=== PATIENT | female | born 1940 | race Caucasian/White ===

== ENCOUNTER 2017-12-12 06:34 | Inpatient (IN) ==
[2017-12-12] MEDS ORDERED: Chlorhexidine Gluconate 2% 1 Pack (2 Cloths) TOPICAL ONE (06:59)
[2017-12-12] MEDS ORDERED: Metoprolol Tartrate 25 MG Tablet PO ONE (06:59)
[2017-12-12] MEDS ORDERED: ceFAZolin 2 GM Premix Inj 2 GM/100 ML BAG IV.SIG SCH (07:00)
[2017-12-12] MEDS ORDERED: Sodium Chlor 0.9% Inj 500 ML IV.SIG SCH (07:00)
[2017-12-12] MEDS ORDERED: Bupivacaine/Epinephrine 0.5% Inj 50 ML Vial ONE (07:12)
[2017-12-12] MEDS ORDERED: Gelatin Size 100 Topical Foam ONE (07:13)
[2017-12-12] MEDS ORDERED: Thrombin Topical Soln 5,000 UNIT Vial TOPICAL ONE (07:13)
[2017-12-12] MEDS ORDERED: Hypromellose 0.3% Opth Gel 10 GM Bottle ONE (07:35)
[2017-12-12] MEDS ORDERED: Propofol Inj 500 MG/50 ML Vial ONE (07:36)
[2017-12-12] MEDS ORDERED: Dexmedetomidine Inj 200 MCG/2 ML Vial ONE (07:37)
[2017-12-12] MEDS ORDERED: HYDROmorphone PF Inj 2 MG/ML Vial ONE (07:47)
[2017-12-12] MEDS: Vancomycin Inj 1,000 MG in Sodium Chlor 0.9% Inj 250 ML IV.SIG SCH ×3 (08:11→20:16)
[2017-12-12] MEDS ORDERED: Famotidine PF Inj 20 MG/2 ML Vial ONE (08:11)
[2017-12-12] MEDS ORDERED: Heparin - SQ 10,000 UNITS/ML Vial ONE (11:01)
[2017-12-12] MEDS ORDERED: Bupivacaine Liposomal PF 1.3% Inj 20 ML Vial ONE (11:23)
[2017-12-12] MEDS ORDERED: Bisacodyl 10 MG Supp RECTAL PRN (13:27)
[2017-12-12] MEDS ORDERED: Naloxone Inj 0.4 MG/ML Vial IV.PUSH PRN (13:27)
[2017-12-12] MEDS ORDERED: HYDROmorphone PCA Inj 6 MG/30 ML PCA.VIAL PCA PRN (13:27)
[2017-12-12] MEDS ORDERED: Acetaminophen 325 MG Tablet PO PRN (13:27)
[2017-12-12] MEDS ORDERED: Zolpidem Tartrate 5 MG Tablet PO PRN (13:33)
[2017-12-12] MEDS ORDERED: HYDROmorphone PCA Inj 6 MG/30 ML PCA.VIAL PCA ONE (13:46)
[2017-12-12] MEDS ORDERED: fentaNYL Citrate Inj 100 MCG/2 ML Ampul ONE (13:59)
--- NOTE | 2017-12-12 14:02 | XR ---
EXAM DATE: 12/12/2017 1:59 PM EDT AGE/SEX: 77 years / Female INDICATIONS: Stenosis, discectomy, fusion, hardware placement. CLINICAL DATA: This is the patient's initial encounter. Patient reports that signs and symptoms have been present for 1 day and indicates a pain score of Nonresponsive. MEDICAL/SURGICAL HISTORY: None. None. COMPARISON: No prior exams available for comparison. FINDINGS: Frontal and lateral spot intraoperative fluoroscopic views of the lumbar spine demonstrate posterior ginny and transpedicular screw fixation hardware and intervertebral fusion hardware at the L3-L5 levels . Surgical drain is seen. CONCLUSION: Postoperative changes. Electronically signed by: Martínez Seay MD 12/12/2017 2:01 PM EDT
--- NOTE | 2017-12-12 15:35 | P.OP ---
Preoperative Diagnosis: Degenerative spondylolisthesis Postoperative Diagnosis: Degenerative spondylolisthesis Date of procedure: 12/12/17 Procedure: L4-L5, L5-S1 laminectomy, interbody arthrodhesis using PEEK cage and autologous bone graft, L4-L5 instrumental fixation using transpedicular screws and rods, L4 -L5 posterolateral fusion using autologous bone graft and demineralized bone matrix. Microsurgical dissection Anesthesia: MARIBELL Surgeon: Antonio Loza MD Numerical Control Machine Machinist: Iwona Hernandez Pathology: none sent Operation and Findings: INDICATIONS FOR THE SURGICAL PROCEDURE Ms Lees is a 77 year-old female who presented with intractable mechanical back pain and anselmo evidence of L5 and S1 lower extremity radiculopathy. She has spondylolisthesis with severe loss of disk space. She failed maximum nonsurgical management including multiple modalities of conservative treatment as well as pain management interventions by an interventional pain specialist. A surgical decompression and arthrodhesis were indicated as a last resort. The [id number] details of the procedure, indications, alternatives, risks and potential complications were fully discussed with the patient. The patient fully understood. All the questions were answered. No guarantees were given. The patient voiced requesting the procedure and provided informed consents. The patient was offered the alternative of delaying the procedure and continuing with nonsurgical management. DETAILS OF THE SURGICAL PROCEDURE Prior to the procedure, the surgical incision was marked in the preoperative surgical holding room, and the procedure, risks, and potential complications revisited with the patient. Placement of electrodes for intraoperative neurophysiological monitoring was completed. The patient was taken to the operative room, and following induction of general anesthesia, endotracheal intubation was performed. A Hubbard catheter, bilateral SUZANNE hose and sequential compression devices were placed and kept throughout the procedure. The patient was positioned prone, over a Andrzej table over a Vimal frame. All pressure in the preoperative surgical holding room points were carefully padded with eggcrate and gel mattress. The eyes were tapped shut after ointment was applied by the nesthesiologist to prevent corneal abrasion. A Baldev hugger was placed over the exposed lower body to maintain control of the core body temperature. The electrophysiological team placed the needles and electrodes in their proper location and baseline SSEP's and motor evoked potentials were registered prior and following the positioning. The entrance to each pedicles was marked using a C arm. The lumbar region was prepped and draped in the usual sterile fashion. The surgical procedure was performed in several steps as follow: SURGICAL APPROACH Once the patient was positioned, a localizing cross-table lateral x-ray was performed with a C-arm. Two paramedian small incisions were outlined on the skin approximately 3cm from the midline. The skin incisions were made with a # 10 blade. Small bleeders were controlled with the cautery. The dissection was then carried out into deper planes and through the thoracolumbar fascia with a Bovie. The intermuscular septum was identified and the myscles were blunted dissected along the septum. The facets and transverse process of L4, L5 and S1 were exposed and the proper anatomical landmarks were identidied. A microsurgical self-retaining retractor was placed on the incision, and a localizing lateralizing cross-table x-ray was performed with an instrument underneath a lamina of the lumbar spine. There was a bilateral pars defect with gross instability of the bony structures. INSTRUMENTAL FIXATION At this point in the procedure, placement of bilateral transpedicular screws was necessary for stabilization of the spine. Initially, the entry point for the screw was selected anatomically at the junction of the facet, with the transverse process, and the pars interarticularis at L5 and at the sacrum. This was started with a Giamshetti needle followed by the use of a benitez wire. A tap was used to create the threads for the screws. Finally bilateral transpedicular screws were carefully placed bilaterally at L4, L5, and and S1 under fluoroscopic visualization. An appropriate purchase was achieved with all screws. The position of each screw was assessed anatomically with an AP, lateral , oblique Xrays. An intraoperative scan view of the spine was then performed using the iso-centric c-arm. Each screw was then assessed electrophysiologically with a nerve stimulator. SURGICAL DECOMPRESSION There was significant mass effect with compression of the neural structures. In order to relieve neural compression, it was necessary to perform a decompressive laminectomy, with decompression of the spinal canal and bilateral lateral recesses. Note that the scope of such decompression was significantly more extensive than the minimal exposure necessary to perform an interbody fusion, as there was extreme facet arthropathy with near complete collapse of the disk spaces and severe stenosis cause by the hyperthrophic joint facets. At this point of the procedure the operative microscope was draped in the usual sterile fashion and brought to the field. The rest of the surgical procedure was performed using microdissection technique with the exception of the closure. Under the operating microscope, a decompressive laminectomy was carried out at L5-S1 as follow: The laminae, base of the spinous processes and facets were carefully drilled exposing the ligamentum flavum. The facets were abnormal with severe facet arthropathy, vacuum facets, and mass effect over the neural structures. A broad disk protusion was contributing to compression of the neural structures and exiting L5, and S1 nerve roots. A near complete facetectomy was necessary resulting in further mechanical instability. The ligamentum flavum appeared hypertrophic, resulting on mass effect on the dorsal surface of the neural structures. The superior free border of the ligamentum flavum was elevated with a ligament dissector and the ligamentum flavum was removed with a 3 and 4 mm Kerrison forceps. The ligament was very adherent to the dural sac and during the dissection, ans extreme care was taken during the dissection. The exiting nerve roots were identified, and a wide foraminotomy was performed with a Kerrison in their trajectory towards the neural foramina at both levels. Epidural veins located laterally to the dural sac were coagulated with the bipolar cautery, and then incised using micro scissors. Gentle medial retraction of the dural sac allowed me to expose the disc space for the discectomy. Upon completion of the discectomy, an excellent decompression of the neural structures was achieved. INTERBODY ARTHRODHESIS In order to correct the narrowing of the disk space and maintain distraction of the space, and to achieve a solid interbody fusion, it was necessary the insertion of an interbody device into the disk space. Otherwise, the disk space would collapse, compromising the results of the surgical procedure. At this point of the procedure, the annulus fibrosus of the disk was carefully coagulated with a bipolar cautery and incised using an 11 bladed knife. Then, a microdiscectomy was carried out in a standard fashion using a combination of straight and up-biting pituitary forceps. A reverse angle curette was applied underneath the posterior longitudinal ligament, and used to push the disk fragments into the disk space, so they can be safely removed with a pituitary forceps. Once the discectomy was completed, it was necessary to decorticate the endplates, in order to eliminate the cartilaginous endplate and to expose healthy bone appropriate to perform the interbody fusion. The endplates at L4-5 , and L5-S1 were then thoroughly decorticated using increasing size bone nikita and ring curets, eliminating the cartilaginous fragments from both, the superior and inferior endplates. A disk space distractor was applied to the pedicle screws and gentle distraction was applied. This maneuver was assisted by the use of a disk distractor. Increased motility was noted at the disk, which was consistent with instability due to facet arthropathy. Once a thorough preparation of the disk space was achieved, the disk space was irrigated with antibiotic solution, and the interbody fusion was performed by carefully impacting PPEK cages filled with autologous iliac crest bone graft. A 7 mm cage was placed at L5-S1 and a 8mm cage was used at L4-L5. The use of several shoe impactors with different angulation, allowed me for an excellent, proper position of the interbody cage. A solid position of the cage with good purchase was achieved. The position of the cages were assessed anatomically with a probe and radiologically with the C-arm. POSTEROLATERAL FUSION The posterolateral fusion is a critical component to the procedure, to prevent future fatigue and failure of the instrumental fixation. Initially, the transverse processes of the vertebral bodies, lateral surface of the facets and the lateral gutters of the spine were carefully cleaned, eliminating all soft tissue and muscle attachments. The area was then irrigated with a large amount of antibiotic solution. Subsequently, the transverse processes, lateral surface of the facets, and lateral gutters of the spine were thoroughly decorticated using the TPS drill with a 5mm cutting lucas, exposing cancellous bone, in preparation for the posterolateral fusion. The incision was again irrigated with antibiotic solution. Then, the posterolateral fusion was then performed by carefully packing the lateral gutters of the spine at L4-5, and L5-S1 with autologous iliac crest bone combined with demineralized bone matrix. I packed as much bone as possible. COMLETION OF THE INSTRUMENTATION AND CLOSURE The rods were brought to the field, applied to all the screws, and the screw caps were sequentially applied. Compression was performed between the pedicle screws, and final tightening of the screws was completed using a torque wrench. A cross-link was used to connect the rods, in order to increase the stability of the construct. The cross link was secured using a torque wrench previously calibrated. The incision was again thoroughly irrigated with several liters of antibiotic solution, and hemostasis secured with the bipolar cautery. A Valsalva Maneuver performed by the anesthesiologist failed to show any evidence of cerebrospinal fluid leak or bleeding. A 10 mm Andrzej-St drain was left in the epidural space and externalized through a separate stab incision. The incision was then closed in planes. 0 Vicryl was used in an interrupted fashion to close the thoracolumbar fascia and the superficial fascia. The subcutaneous tissue was then approximated using 3-0 Vicryl in an interrupted fashion. Special care was taken to avoid space. The skin was then closed with 4-0 Vicryl in a running, subcuticular fashion. Dermabond was applied to the skin. Each plane of closure was irrigated with antibiotic solution. At the end of the procedure the sponge, needle and instrument counts were all correct. Estimated blood loss was 250 cc or less. No blood transfusion was given. The entire procedure was performed using continuous electrophysiological monitoring of the somatosensorial evoked potentials and EMG. The patient received prophylactic antibiotics. The patient was then extubated and transferred to the recovery room in stable condition.
--- NOTE | 2017-12-12 17:56 | P.CONCC ---
History of Present Illness Service: Critical care medicine Consult date: 12/12/17 Requesting Physician: Antonio Loza Reason for Consult: management of medical comorbidities Primary Care Provider: Jonnie Tabares MD Family Provider: oJnnie Tabares MD History of Present Illness: This is a 77-year-old female who presents for elective L5-S1 lumbar laminectomy with Dr. Loza. She has a history of GERD, hypertension, recent intermittent chest pain which is atypical nature, remote prior history of cervical cancer, and lower lumbar spondylolisthesis. She underwent uncomplicated procedure. She arrives to the ICU in stable and exudative condition. She is arousing from anesthesia and remains somewhat somnolent so a complete history and review of systems is unavailable. Limited review of systems is negative for chest pain, shortness of breath, headache, sore throat, nausea vomiting. In regards to her recent intermittent chest pain, she states she has not had any in at least a week. She has been worked up by her PCP, and has EKG in our system without any concerning changes. She does not have any associated dyspnea on exertion, shortness of breath, lightheadedness, syncope with this. Review of Systems All other systems reviewed negative except as stated in HPI PMFSH - History History Provided By: Patient - Medical History Medical History: Medical History (Last Reviewed 12/12/17 @ 07:06 by Zainab Celis) Degenerative joint disease GERD (gastroesophageal reflux disease) Hx of carcinoma in situ of cervix uteri Hypertension Osteoporosis Pain, radicular, lumbar Spondylolisthesis Wears eyeglasses - Surgical History Surgical History: Surgical History (Last Reviewed 12/12/17 @ 07:06 by Zainab Celis) History of YAG laser iridotomy of right eye History of conization of cervix History of tonsillectomy Hx of breast biopsy Hx of cataract removal with insertion of prosthetic lens Hx of cholecystectomy - Tobacco History Second Hand Smoke Exposure: No Smoking Status: Former smoker - Alcohol History How Often Do You Have a Drink Containing Alcohol: 4 or more times a week - Substance Use History Substance History: No History of Abuse - Travel History Recent Travel in the [facility] Within the Last 8 Weeks: No Recent Travel Out of the Country Within the Last 8 Weeks: No Medications and Allergies Active Medications: Active Medications Acetaminophen (Tylenol) 650 mg PO Q4H PRN PRN Reason: TEMPERATURE > 101.5 F Al Hydroxide/Mg Hydroxide (Milk Of Magnyannick Liq) 30 ml PO Q12H PRN PRN Reason: Mild Constipation Albuterol (Albuterol Neb (Prn)) 2.5 mg NEB Q4HR NEB PRN PRN Reason: WHEEZING Bisacodyl (Dulcolax Supp) 10 mg RECTAL DAILY PRN PRN Reason: SEVERE CONSITIPATION Lactated Ringer's (Lr 1000 Ml Inj) 1,000 mls @ 30 mls/hr IV.SIG .Q24H [facility] Stop: 12/13/17 06:59 Last Admin: 12/12/17 08:12 Dose: 30 mls/hr Sodium Chloride (Ns Inj) 500 mls @ 30 mls/hr IV.SIG .Q10H [facility]ATH[facility] Vancomycin HCl 1,000 mg/ (Sodium Chloride) 250 mls @ 250 mls/hr IV.SIG BULK [facility]AL[facility] Stop: 12/15/17 07:59 Last Admin: 12/12/17 11:06 Dose: 250 mls/hr Hydromorphone/Sodium Chloride (Dilaudid Store Shopper Inj) 6 mg in 30 mls @ 0 mls/hr EDGE [facility] UNSCH PRN PRN Reason: per EDGE GLUER parameters Last Admin: 12/12/17 14:19 Dose: 0 mls/hr Vancomycin HCl 1,000 mg/ (Sodium Chloride) 250 mls @ 250 mls/hr IV.SIG Q12H [facility] Stop: 12/13/17 08:59 Labetalol HCl (Trandate Inj) 10 mg IV.PUSH Q1H PRN PRN Reason: SYS BP GREATER THAN 170 MMHG Lactulose (Lactulose Liq) 30 ml PO DAILY PRN PRN Reason: SEVERE CONSITIPATION Lisinopril (Prinivil) 10 mg PO DAILY [facility] Magnesium Oxide (Mag-Ox) 400 mg PO BID [facility] Miscellaneous Information (Misc Nursing Information) 1 each OTHER UNSCH PRN PRN Reason: SEE LABEL COMMENTS Stop: 12/13/17 13:52 Multivitamins (Theragran) 1 tab PO DAILY [facility] Naloxone HCl (Narcan Inj) 0.4 mg IV.PUSH PRN PRN PRN Reason: SEE LABEL COMMENTS Non-Formulary Medication (Ginkgo Biloba [Ginkgo Biloba]) 120 mg PO DAILY [facility] Non-Formulary Medication (Diltiazem Hcl [Diltiazem Hcl]) 120 mg PO BID [facility] Ondansetron HCl (Zofran Inj) 4 mg IV.PUSH Q6H PRN PRN Reason: NAUSEA OR VOMITING Pantoprazole Sodium (Protonix Inj) 40 mg IV.PUSH DAILY HEATH[facility] (Cyclosporine 0.05% Opth. Emulsion [ Restasis]) 1 each EACH EYE Q12HR [facility]ATH[facility] Senna/Docusate Sodium (Deborah-Colace) 1 tab PO BID [facility] Sennosides (Senokot) 17.2 mg PO Q12H PRN PRN Reason: Moderate Constipation Allergies Allergy/AdvReac Type Severity Reaction Status Date / Time amoxicillin Allergy Severe Rash Verified 12/12/17 07:07 iodine Allergy Severe RESP. Verified 12/12/17 07:07 DISTRESS penicillin G Allergy Severe Rash Verified 12/12/17 07:07 potassium iodide Allergy Severe RESP. Verified 12/12/17 07:07 DISTRESS povidone-iodine Allergy Severe RESP. Verified 12/12/17 07:07 DISTRESS shellfish derived Allergy Severe Difficulty Verified 12/12/17 07:07 Breathing sodium iodide Allergy Severe RESP. Verified 12/12/17 07:07 DISTRESS Home Medications Medication Instructions Recorded Confirmed Type aspirin [Adult Low Dose Aspirin] 81 mg PO DAILY 12/05/17 12/12/17 History biotin 5,000 mcg PO DAILY 12/05/17 12/12/17 History calcium-vitamin D3-vitamin K 1 tab PO DAILY 12/05/17 12/12/17 History [Citracal Chew] cyclosporine [Restasis MultiDose] 1 drp OPHTHALMIC (EYE) Q12H 12/05/17 12/12/17 History diltiazem HCl 120 mg PO BID 12/05/17 12/12/17 History ginkgo biloba 120 mg PO DAILY 12/05/17 12/12/17 History lisinopril 10 mg PO DAILY 12/05/17 12/12/17 History magnesium oxide 500 mg PO BID 12/05/17 12/12/17 History dsqngojblzpw-[id number]-FA-vit K 1 tab PO DAILY 12/05/17 12/12/17 History [Adults Multivitamin] [id number]-[id number]-dha-epa 2 cap PO BID 12/05/17 12/12/17 History zolpidem [Ambien] 1 - 2 tab PO HS PRN 12/05/17 12/12/17 History Physical Exam Vital signs: Vital Signs 12/12/17 07:40 12/12/17 13:52 12/12/17 14:00 Temperature 36.3 C L 36.3 C L Pulse Rate 67 75 81 Respiratory Rate 16 16 16 Blood Pressure 140/81 118/69 112/63 Pulse Oximetry 100 100 100 12/12/17 14:15 12/12/17 15:13 Temperature Pulse Rate 77 70 Respiratory Rate 16 16 Blood Pressure 111/66 106/58 L Pulse Oximetry 100 100 Intake & Output 12/11/17 12/12/17 12/12/17 18:59 06:59 18:59 Intake Total 2250 / 2250 Output Total 1240 / 1240 Balance 1010 / 1010 Weight 46.9 kg Intake: IV 250 / 250 Vancomycin Inj 1,000 MG In NS 250 / 250 Inj 250 ML @ 250 mls/hr IV.SIG BULK SEALER [facility] Rx#:[id number] Oral 0 / 0 Anesthesia Amount 1999 / 1999 Output: Estimated Blood Loss 250 / 250 Urine Amount (Catheter) 950 / 950 Indwelling Urethral Catheter 950 / 950 Wound Drainage 40 / 40 # 1 Back 40 / 40 Other: Weight On Admission 46.9 kg Narrative: GENERAL: Frail elderly female, lying in bed, arousing from anesthesia HEENT: Normocephalic. Atraumatic. Pupils equal, round, reactive, conjugate. Mucous membranes are moist NECK: Trachea is midline. There is no JVD. CHEST: Nasal cannula oxygen, equal chest rise CARDIOVASCULAR: Normal rate, regular rhythm. Sinus. ABDOMEN: Soft, nontender, nondistended. No guarding. MUSCULOSKELETAL: Pulses 2+. No peripheral edema. CLARICE drain exit the lower back with approximately 5-10 mL's of sanguinous output. NEUROLOGICAL: RASS -1. Arousing from anesthesia. Speech and language are intact. Musculoskeletal strength is 5/5 in all extremities. Sensation is grossly intact. No focal deficits. - Urinary Catheter Management Indwelling Urethral Catheter Cath placed during this visit: yes Reason for continuing: Other continuation reason Insertion date: 12/12/17 Insertion time: 09:00 Assessment and Plan - Assessment and Plan Plan: Assessment: 77-year-old female postop day 0 status post lumbar laminectomy at L4 -5 and L5-S1. Agree with admission to the ICU for close neuro checks. Chest pain appears atypical in nature and she has not had any chest pain today or in the very recent future. s/p laminectomy L4/5, L5/S1 12/12 - frequent neurovascular checks - watch CLARICE output atypical chest pain - clinically monitor - counseled patient to notify bedside RN of any episodes of chest pain - EKG without changes - no concerning symptoms in the history. - keep on tele. history of tobacco use - aggressive pulmonary toilet - prn nebs Hypertension - goal sbp < 180 ICU electrolyte protocol SCDs pharmacologic dvt prophylaxis per Nsgy advance diet as tolerated. Critical care medicine will follow along.
[2017-12-12] MEDS: Magnesium Oxide 400 MG Tablet PO SCH (20:14)
[2017-12-12] MEDS: Senna/Docusate Sodium 8.6/50 MG Tablet PO SCH (20:14)
[2017-12-12] MEDS ORDERED: Sodium Chlor 0.9% Inj 500 ML IV.SIG ONE (20:20)
[2017-12-12] MEDS ORDERED: Lidocaine PF 1% Inj 5 ML Syringe INFILTRATN ONE (20:20)
[2017-12-12] MEDS ORDERED: Phenylephrine/NS 1000 MCG/10ML Syringe IV.PUSH ONE (20:20)
[2017-12-12] MEDS: OPTH EMULSION EACH EYE SCH ×2 (20:28→21:37)
[2017-12-12] MEDS: CYCLOSPORINE 0.05% EACH EYE SCH ×2 (20:28→21:37)
[2017-12-12] MEDS: Labetalol HCl Inj 100 MG/20 ML Vial IV.PUSH PRN ×2 (20:48→21:29)
[2017-12-12] MEDS ORDERED: [UNRECOGNIZED DRUG - MIXTURE] PO SCH (21:00)
[2017-12-12] MEDS: dilTIAZem 60 MG Tablet PO SCH (22:35)
[2017-12-13 04:25] LABS: Baso % (Auto) 0.1 % (0.0-2.0); Hematocrit 34.6 % (35.0-46.0); Hemoglobin 11.9 gm/dL (11.6-15.3); Lymph # (Auto) 0.4 th/mm3 (1.0-4.8); Mean Corpuscular HGB Conc 34.4 % (32.0-36.0); Mean Corpuscular Hemoglobin 33.9 pg (27.0-34.0); Mean Corpuscular Volume 98.6 fL (80.0-100.0); Mean Platelet Volume 8.4 fL (7.0-11.0); Mono # (Auto) 0.9 th/mm3 (0.0-0.9); Mono % (Auto) 9.5 % (0.0-8.0); Neut # (Auto) 7.9 th/mm3 (1.8-7.7); Neut % (Auto) 86.4 % (16.0-70.0); Platelet Count 236 th/mm3 (150-450); Red Blood Count 3.51 mil/mm3 (4.00-5.30); Red Cell Distribution Width 13.1 % (11.6-17.2); White Blood Count 9.2 th/mm3 (4.0-11.0)
[2017-12-13 04:48] LABS: Anion Gap 10 meq/L (5-15); Blood Urea Nitrogen 9 mg/dL (7-18); Calcium 8.2 mg/dL (8.5-10.1); Carbon Dioxide 28.3 meq/L (21.0-32.0); Chloride 100 meq/L (98-107); Glomerular Filtration Rate Greater Than 89 mL/min (>89); Glucose,Random 125 mg/dL (74-106); Potassium 4.1 meq/L (3.5-5.1); Sodium 138 meq/L (136-145)
--- NOTE | 2017-12-13 08:58 | P.PNCC ---
Subjective Subjective Remarks/Hospital Course: 12/12: This is a 77-year-old female who presents for elective L5-S1 lumbar laminectomy with Dr. Loza. She has a history of GERD, hypertension, recent intermittent chest pain which is atypical nature, remote prior history of cervical cancer, and lower lumbar spondylolisthesis. She underwent uncomplicated procedure. She arrives to the ICU in stable and exudative condition. She is arousing from anesthesia and remains somewhat somnolent so a complete history and review of systems is unavailable. Limited review of systems is negative for chest pain, shortness of breath, headache, sore throat, nausea vomiting. In regards to her recent intermittent chest pain, she states she has not had any in at least a week. She has been worked up by her PCP, and has EKG in our system without any concerning changes. She does not have any associated dyspnea on exertion, shortness of breath, lightheadedness, syncope with this. 12/13: Resting comfortably in bed, not in any acute distreess. Objective Vital Signs / I&O: Vital Signs 12/12/17 13:52 12/12/17 14:00 12/12/17 14:15 Temperature 97.4 F L Pulse Rate 75 81 77 Respiratory Rate 16 16 16 Blood Pressure 118/69 112/63 111/66 Pulse Oximetry 100 100 100 12/12/17 15:13 12/12/17 19:00 12/12/17 20:00 Temperature 97.4 F L Pulse Rate 70 74 72 Respiratory Rate 16 18 17 Blood Pressure 106/58 L 154/87 H 172/93 H Pulse Oximetry 100 94 L 97 12/12/17 21:00 12/12/17 22:00 12/12/17 23:00 Temperature Pulse Rate 76 84 86 Respiratory Rate 17 14 18 Blood Pressure 180/99 H 179/101 H 170/100 H Pulse Oximetry 100 100 100 12/12/17 23:41 12/13/17 00:00 12/13/17 04:00 Temperature 97.8 F Pulse Rate 71 84 Respiratory Rate 18 21 18 Blood Pressure 166/96 H 155/88 H Pulse Oximetry 100 100 12/13/17 06:55 12/13/17 07:39 Temperature Pulse Rate Respiratory Rate 25 H 22 Blood Pressure Pulse Oximetry Intake & Output 12/12/17 12/13/17 12/13/17 18:59 06:59 18:59 Intake Total 2250 / 2250 1500 / 1500 Output Total 1240 / 1240 440 / 440 Balance 1010 / 1010 1060 / 1060 Weight 46.9 kg 54.9 kg Intake: IV 250 / 250 500 / 500 Vancomycin Inj 1,000 MG In NS 250 / 250 500 / 500 Inj 250 ML @ 250 mls/hr IV.SIG Q12H [facility] Rx#:[id number] Oral 0 / 0 1000 / 1000 Anesthesia Amount 1999 / 1999 Output: Estimated Blood Loss 250 / 250 Urine Amount (Catheter) 950 / 950 400 / 400 Indwelling Urethral Catheter 950 / 950 400 / 400 Wound Drainage 40 / 40 40 / 40 # 1 Back 40 / 40 40 / 40 Other: # Bowel Movements 0 Weight On Admission 46.9 kg Result Diagrams: 12/13/17 03:21 12/13/17 03:21 Objective Remarks: GENERAL: Frail elderly female, lying in bed, not in any distress. HEENT: Normocephalic. Atraumatic. Pupils equal, round, reactive, conjugate. Mucous membranes are moist NECK: Trachea is midline. There is no JVD. CHEST: Nasal cannula oxygen, equal chest rise CARDIOVASCULAR: Normal rate, regular rhythm. Sinus. ABDOMEN: Soft, nontender, nondistended. No guarding. MUSCULOSKELETAL: Pulses 2+. No peripheral edema. CLARICE drain exit the lower back with sanguinous output. NEUROLOGICAL: AAO x3. Speech and language are intact. Musculoskeletal strength is 5/5 in all extremities. Sensation is grossly intact. No focal deficits. Assessment and Plan - Assessment and Plan Plan: Assessment: 77-year-old female postop day 0 status post lumbar laminectomy at L4 -5 and L5-S1. Agree with admission to the ICU for close neuro checks. Chest pain appears atypical in nature and she has not had any chest pain today or in the very recent future. s/p laminectomy L4/5, L5/S1 12/12 - frequent neurovascular checks - watch CLARICE output atypical chest pain - clinically monitor - counseled patient to notify bedside RN of any episodes of chest pain - EKG without changes - no concerning symptoms in the history. - keep on tele. history of tobacco use - aggressive pulmonary toilet - prn nebs Hypertension - goal sbp < 180 ICU electrolyte protocol SCDs pharmacologic dvt prophylaxis per Nsgy advance diet as tolerated. Critical care medicine will follow along.
--- NOTE | 2017-12-13 08:59 | P.PNNS ---
Subjective Interval history: Fairly uneventful night. Reports expected amount of postoperative pain. Has not been using her [employer] very much; she feels that it might be reducing her kidney function because she has not voided much urine yet. Awaiting her back brace. Physical Exam Vital signs: Vital Signs 12/12/17 13:52 12/12/17 14:00 12/12/17 14:15 Temperature 97.4 F L Pulse Rate 75 81 77 Respiratory Rate 16 16 16 Blood Pressure 118/69 112/63 111/66 Pulse Oximetry 100 100 100 12/12/17 15:13 12/12/17 19:00 12/12/17 20:00 Temperature 97.4 F L Pulse Rate 70 74 72 Respiratory Rate 16 18 17 Blood Pressure 106/58 L 154/87 H 172/93 H Pulse Oximetry 100 94 L 97 12/12/17 21:00 12/12/17 22:00 12/12/17 23:00 Temperature Pulse Rate 76 84 86 Respiratory Rate 17 14 18 Blood Pressure 180/99 H 179/101 H 170/100 H Pulse Oximetry 100 100 100 12/12/17 23:41 12/13/17 00:00 12/13/17 04:00 Temperature 97.8 F Pulse Rate 71 84 Respiratory Rate 18 21 18 Blood Pressure 166/96 H 155/88 H Pulse Oximetry 100 100 12/13/17 06:55 12/13/17 07:39 Temperature Pulse Rate Respiratory Rate 25 H 22 Blood Pressure Pulse Oximetry Intake & Output 12/12/17 12/13/17 12/13/17 18:59 06:59 18:59 Intake Total 2250 / 2250 1500 / 1500 Output Total 1240 / 1240 440 / 440 Balance 1010 / 1010 1060 / 1060 Weight 46.9 kg 54.9 kg Intake: IV 250 / 250 500 / 500 Vancomycin Inj 1,000 MG In NS 250 / 250 500 / 500 Inj 250 ML @ 250 mls/hr IV.SIG Q12H [facility] Rx#:[id number] Oral 0 / 0 1000 / 1000 Anesthesia Amount 1999 / 1999 Output: Estimated Blood Loss 250 / 250 Urine Amount (Catheter) 950 / 950 400 / 400 Indwelling Urethral Catheter 950 / 950 400 / 400 Wound Drainage 40 / 40 40 / 40 # 1 Back 40 / 40 40 / 40 Other: # Bowel Movements 0 Weight On Admission 46.9 kg - Routine Neurological Exam Alert and conversant. Normal function bilateral upper extremities. She had 5/ 5 strength in the distal lower extremities bilaterally. Iliopsoas was 4/5 bilaterally, pain limited rather than true weakness. Sensation intact throughout the legs. CLARICE drain put out 40 mL. - Urinary Catheter Management Indwelling Urethral Catheter Cath placed during this visit: yes Reason for continuing: Other continuation reason Insertion date: 12/12/17 Insertion time: 09:00 Assessment and Plan - Plan Postop day 1 from L4-S1 PLIF. X-rays look good. Expected amount of pain; does not want to use her [employer]. We will discontinue it and increase her oral pain medication regimen. She is taking good p.o.; will Melody IV. Once she has her LSO brace, she can begin to mobilize. We will keep CLARICE drain in place until tomorrow, and possibly discontinue it if output decreases. We will keep Hubbard today unless she becomes a bit more mobile.
[2017-12-13] MEDS ORDERED: CALCIUM VITAMIN D3 VITAMIN K PO SCH (09:00)
[2017-12-13] MEDS: Pantoprazole Inj 40 MG Vial IV.PUSH SCH (09:09)
[2017-12-13] MEDS: Senna/Docusate Sodium 8.6/50 MG Tablet PO SCH ×2 (09:09→22:44)
[2017-12-13] MEDS: Magnesium Oxide 400 MG Tablet PO SCH ×2 (09:09→21:23)
[2017-12-13] MEDS: Lisinopril 10 MG Tablet PO SCH (09:09)
[2017-12-13] MEDS: Vancomycin Inj 1,000 MG in Sodium Chlor 0.9% Inj 250 ML IV.SIG SCH (09:11)
[2017-12-13] MEDS: CYCLOSPORINE 0.05% EACH EYE SCH ×2 (09:11→22:44)
[2017-12-13] MEDS: OPTH EMULSION EACH EYE SCH ×2 (09:11→22:44)
[2017-12-13] MEDS: dilTIAZem 60 MG Tablet PO SCH ×2 (09:35→21:23)
[2017-12-13] MEDS: oxyCODONE/Acetaminophen 10/325 Tablet PO PRN ×2 (09:35→13:13)
[2017-12-14] MEDS: Senna/Docusate Sodium 8.6/50 MG Tablet PO SCH ×2 (08:11→21:02)
[2017-12-14] MEDS: Pantoprazole Inj 40 MG Vial IV.PUSH SCH (08:11)
[2017-12-14] MEDS: dilTIAZem 60 MG Tablet PO SCH ×2 (08:11→21:02)
[2017-12-14] MEDS: Magnesium Oxide 400 MG Tablet PO SCH ×2 (08:11→21:03)
[2017-12-14] MEDS: Lisinopril 10 MG Tablet PO SCH (08:11)
[2017-12-14] MEDS: CYCLOSPORINE 0.05% EACH EYE SCH ×2 (13:20→21:04)
[2017-12-14] MEDS: OPTH EMULSION EACH EYE SCH ×2 (13:20→21:04)
[2017-12-14] MEDS ORDERED: oxyCODONE/Acetaminophen 10/325 Tablet PO PRN (17:38)
[2017-12-15] MEDS: dilTIAZem 60 MG Tablet PO SCH (08:56)
[2017-12-15] MEDS: Lisinopril 10 MG Tablet PO SCH (08:56)
[2017-12-15] MEDS: Magnesium Oxide 400 MG Tablet PO SCH (08:57)
[2017-12-15] MEDS: Senna/Docusate Sodium 8.6/50 MG Tablet PO SCH (08:57)
[2017-12-15] MEDS: OPTH EMULSION EACH EYE SCH (09:04)
[2017-12-15] MEDS: Pantoprazole Inj 40 MG Vial IV.PUSH SCH (09:04)
[2017-12-15] MEDS: CYCLOSPORINE 0.05% EACH EYE SCH (09:04)
[2017-12-15 09:07] VITALS: RESP 16
--- NOTE | 2017-12-15 10:42 | P.PNNS ---
Subjective Interval history: 12/15: doing well, pain controlled on oral medications, reports of mild paresthesias in legs. Physical Exam Vital signs: Vital Signs 12/14/17 12:00 12/14/17 13:00 12/14/17 14:00 Temperature 98.1 F Pulse Rate 66 80 74 Respiratory Rate 18 Blood Pressure 95/66 L Pulse Oximetry 98 12/14/17 16:00 12/14/17 17:45 12/14/17 20:00 Temperature 98.3 F 99.6 F 98.2 F Pulse Rate 77 86 80 Respiratory Rate 20 16 17 Blood Pressure 125/60 139/63 144/75 H Pulse Oximetry 98 98 98 12/15/17 00:00 12/15/17 04:00 12/15/17 08:00 Temperature 98.1 F 98 F 97.8 F Pulse Rate 76 82 85 Respiratory Rate 17 17 16 Blood Pressure 140/75 142/78 H 156/75 H Pulse Oximetry 98 98 96 Intake & Output 12/14/17 12/15/17 12/15/17 18:59 06:59 18:59 Intake Total 1000 / 1000 Output Total 1525 / 1525 300 / 300 Balance 1000 / 1000 -1525 / -1525 -300 / -300 Weight 52.8 kg Intake: IV 1000 / 1000 Output: Urine 300 / 300 Urine Amount (Catheter) 1500 / 1500 Indwelling Urethral Catheter 1500 / 1500 Wound Drainage 25 / 25 # 1 Back 25 Other: Date of Last Bowel Movement 12/12/17 12/12/17 12/12/17 Narrative: Awake, sitting up in chair CLARICE drain with minimal drainage moves LE's well - Urinary Catheter Management Indwelling Urethral Catheter Cath placed during this visit: yes, but has since been removed by the nurse Reason for continuing: Decision to DC catheter Insertion date: 12/12/17 Insertion time: 09:00 Removal date: 12/15/17 Removal time: 06:07 Assessment and Plan - Plan Postop day 3 from L4-S1 PLIF postoperative pain controlled on oral medications dc CLARICE drain today and replace Optifoam dressing prior to discharge dc to SNF cont LSO when OOB f/u in office in 5-7 days
--- NOTE | 2017-12-15 10:45 | P.DS ---
Date of admission: 12/12/17 06:34 Primary care physician: Jonnie Tabares MD Brief History from admission: Ms Lees is a 77 year-old female who presented with intractable mechanical back pain and anselmo evidence of L5 and S1 lower extremity radiculopathy. She has spondylolisthesis with severe loss of disk space. She failed maximum nonsurgical management including multiple modalities of conservative treatment as well as pain management interventions by an interventional pain specialist. A surgical decompression and arthrodhesis were indicated as a last resort. DS: Medications - Discharge Medications Prescriptions: oxycodone-acetaminophen 1 tab PO Q4H PRN 3 Days #15 tab PRN Reason: Pain Scale 6 To 10 DS: Summary Hospital Course: Ms. Lees underwent L4-L5, L5-S1 laminectomy, interbody arthrodhesis using PEEK cage and autologous bone graft, L4-L5 instrumental fixation using transpedicular screws and rods, L4-L5 posterolateral fusion using autologous bone graft and demineralized bone matrix. Microsurgical dissection for Degenerative spondylolisthesis on 12/12/17. Her postoperative pain controlled on oral medications. She will be discharged to a [facility] facility. - Time Spent with Patient Total time spent providing and/or coordinating discharge services: Less than 30 minutes - Quality: VTE Deep Vein Thrombosis/Pulmonary Embolism Present on Admission: No Exam Vital signs: Vital Signs 12/14/17 12:00 12/14/17 13:00 12/14/17 14:00 Temperature 98.1 F Pulse Rate 66 80 74 Respiratory Rate 18 Blood Pressure 95/66 L Pulse Oximetry 98 12/14/17 16:00 12/14/17 17:45 12/14/17 20:00 Temperature 98.3 F 99.6 F 98.2 F Pulse Rate 77 86 80 Respiratory Rate 20 16 17 Blood Pressure 125/60 139/63 144/75 H Pulse Oximetry 98 98 98 12/15/17 00:00 12/15/17 04:00 12/15/17 08:00 Temperature 98.1 F 98 F 97.8 F Pulse Rate 76 82 85 Respiratory Rate 17 17 16 Blood Pressure 140/75 142/78 H 156/75 H Pulse Oximetry 98 98 96 Intake & Output 12/14/17 12/15/17 12/15/17 18:59 06:59 18:59 Intake Total 1000 / 1000 Output Total 1525 / 1525 300 / 300 Balance 1000 / 1000 -1525 / -1525 -300 / -300 Weight 52.8 kg Intake: IV 1000 / 1000 Output: Urine 300 / 300 Urine Amount (Catheter) 1500 / 1500 Indwelling Urethral Catheter 1500 / 1500 Wound Drainage # 1 Back Other: Date of Last Bowel Movement 12/12/17 12/12/17 12/12/17 Results Procedures completed during hospitalization: L4-L5, L5-S1 laminectomy, interbody arthrodhesis using PEEK cage and autologous bone graft, L4-L5 instrumental fixation using transpedicular screws and rods, L4 -L5 posterolateral fusion using autologous bone graft and demineralized bone matrix. Microsurgical dissection - Impressions ITS Impressions Lumbar Spine X-Ray 12/12/17 00:00 CONCLUSION: Postoperative changes. Discharge Plan - Discharge Disposition Patient Disposition: Discharge to SNF - Discharge Condition Condition: Good - Discharge Order Discharge Orders: Discharge Order (Routine); Ordered 12/15/17 Ordered By: Tiffany Major - Physicians Team Primary Care Provider: Jonnie Tabares Attending Provider: Antonio Loza Other Providers: Felix Mo MD - Rxs /Orders / Referrals /Forms Prescriptions: New oxycodone-acetaminophen 10-325 mg Tablet 1 tab PO Q4H PRN (Reason: Pain Scale 6 To 10) 3 Days Qty: 15 RF: 0 Continue aspirin [Adult Low Dose Aspirin] 81 mg Tablet,Delayed Release (Dr/Ec) 81 mg PO DAILY biotin 5,000 mcg Tablet,Disintegrating 5,000 mcg PO DAILY calcium-vitamin D3-vitamin K [Citracal Chew] 500 mg-1,000 unit-40 mcg Tablet, Chewable 1 tab PO DAILY cyclosporine [Restasis MultiDose] 0.05 % Drops 1 drp OPHTHALMIC (EYE) Q12H diltiazem HCl 120 mg Tablet 120 mg PO BID ginkgo biloba 120 mg Tablet 120 mg PO DAILY lisinopril 10 mg Tablet 10 mg PO DAILY magnesium oxide 500 mg Tablet 500 mg PO BID firymmeihkob-wrt-stbs-FA-vit K [Adults Multivitamin] 18 mg iron-400 mcg-25 mcg Tablet 1 tab PO DAILY vdcdoklpljquep-zfbxk-[id number]-[id number]-epa 100-19.5-6.5 mg Capsule 2 cap PO BID zolpidem [Ambien] 5 mg Tablet 1 - 2 tab PO HS PRN (Reason: INSOMINA) Referrals: Jonnie Tabares MD [Primary Care Provider] - See Instructions - Discharge Instructions Patient Printed Instructions: Laminectomy (DC), Lumbar Spinal Fusion (DC)
[2017-12-15 12:27] VITALS: BP 101/58; PULSE 83; TEMP 97.3; O2SAT 95
== END 2017-12-15 20:21 ==
LOC: HSDI 06:34 → N03 16:26 → HCIS 12-13 20:22 → N06 12-14 17:20
PROVIDERS: ADMIT Neurological Surgery; ATTEND Neurological Surgery